=== PATIENT | male | born 1985 | race Caucasian/White ===

== ENCOUNTER 2019-10-06 14:38 | Emergency (ER) | payer SELFPAY ==
[~2019-10-06] VITALS: Ht 172.7 cm; Wt 84.1 kg
[2019-10-06 14:46] VITALS: BP 119/72
== END 2019-10-06 15:27 | disposition home or self-care (01) ==
LOC: EMS 14:48
DX: J02.9 Acute pharyngitis, unspecified (principal); Z20.828 Contact with and (suspected) exposure to other viral communicable diseases
CPT/HCPCS: 99283; U0003